=== PATIENT | male | born 1975 | race Asian ===

== ENCOUNTER → 2016-06-10 | Outpatient (CLI) | payer BC ==
[~2016-06-10] MED LIST: AMIO200T44 PO; ASPI81 PO; ASPI81TA2 PO; CARV6 PO; CEPH500 PO; DSS100 PO; FURO20 PO; LEVE250T55 PO; LOSA25TA21 PO; PANT40TA PO; PANT40TA25 PO
== END | disposition home or self-care (01) ==
LOC: RADPV 11:35
PROVIDERS: ATTEND Internal Medicine Cardiovascular Disease
DX: I50.1 Left ventricular failure, unspecified (principal); I51.7 Cardiomegaly; I34.0 Nonrheumatic mitral (valve) insufficiency; I07.1 Rheumatic tricuspid insufficiency
CPT/HCPCS: 93306